=== PATIENT | male | born 1945 | race Caucasian/White ===

== ENCOUNTER → 2021-05-12 | Outpatient (CLI) | payer MEDICARE ==
--- NOTE | 2021-05-12 14:12 | KCIC ---
CT HEAD/BRAIN WO History: Reason: MENTAL STATUS CHANGE / Spl. Instructions: / History: Dizziness, unsteady gait, head ache. Comparison: None. Technique: Noncontrast CT imaging was performed of the head. Exposure: One or more of the following individualized dose reduction techniques were utilized for thi s examination: 1. Automated exposure control 2. Adjustment of the mA and/or kV according to patient size 3. Use of iterative reconstruction technique. Findings: No intracranial hemorrhage. No mass effect. Mild brain parenchymal volume loss. Moderately dilated lateral ventricles. Crowding of sulci at the s kull vertex. Mild prominence of the sylvian fissures. Mild foci of decreased attenuation within the hemispheric white matter, most often due to chronic shaheed rovascular ischemia. Imaged orbits are unremarkable. Imaged paranasal sinuses and mastoid air cells are clear. No acute ca lvarial fracture. Impression: 1. No acute intracranial abnormality. 2. Mild dilatation of the lateral ventricles, may relate to central brain parenchymal volume loss al though can be seen with normal pressure hydrocephalus in the appropriate clinical setting. Electronically signed by: Sean Potts DO (05/12/2021 2:10 PM) [facility]
== END ==
LOC: KCIC CT 13:02
PROVIDERS: ATTEND Family Medicine
DX: I67.82 Cerebral ischemia (principal); R41.82 Altered mental status, unspecified
CPT/HCPCS: 70450

== ENCOUNTER 2021-06-20 13:55 | Inpatient (IN) | payer MEDICARE ==
[~2021-06-20] VITALS: Ht 170.2 cm; Wt 80.7 kg
--- NOTE | 2021-06-20 15:35 | EKG ---
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
--- NOTE | 2021-06-20 15:41 | RAD ---
Single view of the chest. 06/20/2021 3:20 PM Indication: Reason: altered mental status / Spl. Instructions: / History: Comparison: None Findings: There is no focal consolidation. There is no pleural effusion or pneumothorax. Heart size i s normal . No acute osseous abnormalities are seen. Impression: No evidence of acute cardiopulmonary process. Electronically signed by: Efe Brown MD (06/20/2021 3:38 PM) [id number]
[2021-06-20 15:43] LABS: BASO # 0.1 x10^3/uL (0.0-0.2); BASO % 1 % (0-3); EOS # 0.1 x10^3/uL (0.0-0.7); EOS % 1 % (0-3); HEMATOCRIT 39.9 % (39.0-53.0); HEMOGLOBIN 13.6 g/dL (13.0-17.5); LYMPH # 1.7 x10^3/uL (1.0-4.8); LYMPH % 13 % (24-48); MEAN CORPUSCULAR HEMOGLOBIN 32 pg (25-35); MEAN CORPUSCULAR HGB CONC 34 g/dL (31-37); MEAN CORPUSCULAR VOLUME 94 fL (79-100); MONO # 1.4 x10^3/uL (0.0-1.1); MONO % 11 % (0-9); NEUT # 9.8 x10^3/uL (1.8-7.7); NEUT % 75 % (31-73); PLATELET COUNT 257 x10^3/uL (140-400); RED BLOOD COUNT 4.25 x10^6/uL (4.30-5.70); RED CELL DISTRIBUTION WIDTH 13.1 % (11.5-14.5); WHITE BLOOD COUNT 13.1 x10^3/uL (4.0-11.0)
--- NOTE | 2021-06-20 15:55 | RAD ---
EXAM: Head CT without contrast. HISTORY: Altered mental status. TECHNIQUE: Computed tomographic images of the head were obtained without contrast. *One or more of the following individualized dose reduction techniques were utilized for this examina tion: 1. Automated exposure control. 2. Adjustment of the mA and/or kV according to patient size. 3. Use of iterative reconstruction technique. COMPARISON: 05/12/2021. FINDINGS: There is no hemorrhage. There is no mass effect or midline shift. There is stable ventricul ar enlargement, likely due to cerebral atrophy. There is nonspecific decreased attenuation within the cerebral white matter, likely due to chronic small vessel disease. The orbits and visualized paranas al sinuses mastoid air cells are unremarkable. There is no suspicious calvarial lesion. IMPRESSION: 1. No acute intracranial finding. Note is made that MRI is more sensitive for acute infarction. 2. Bilateral cerebral white matter changes, likely due to chronic small vessel disease. 3. Stable ventricular enlargement. This appears to be appropriate for the degree of cerebral atrophy. Electronically signed by: Annie Ortega MD (06/20/2021 3:52 PM) [id number]
[2021-06-20 16:07] LABS: ALBUMIN 3.8 g/dL (3.4-5.0); CALCIUM 9.2 mg/dL (8.5-10.1); POTASSIUM 3.9 mmol/L (3.5-5.1); TOTAL BILIRUBIN 0.4 mg/dL (0.2-1.0); TOTAL PROTEIN 7.6 g/dL (6.4-8.2)
--- NOTE | 2021-06-20 16:22 | PHYS DOC ---
Past Medical History Additional Past Medical Histor: OA, HOME O2 Past Surgical History: Knee Replacement Additional Past Surgical Histo: PLATE IN HAND, HIP SX, Smoking Status: Former Smoker Alcohol Use: None General Adult EDM: Chief Complaint: MULTIPLE COMPLAINTS HPI: HPI: Patient is a 76 year old male who presents with altered mental status. Patient states that today he felt like he was having trouble finding his words and dizziness. Patient has currently been seeing his PCP, Dr. Ziegler regarding these issues. Patient states "my dizziness was a lot worse today and I could tell that I was confused". "I told my I needed to go to the emergency room". also reports patient's had multiple falls in the last month. Patient fell prior to arriving to the ER. Patient is reporting right knee pain along with left thumb pain. Patient still is full range of motion and was able to am bulate. states "he used to golf 3 times a week and was very active until a month ago". states "he will ask the same question over and over again within a 5-minute.". Patient was also seen by Dr. Hernandez on Sunday. Patient has not received results yet but due to symptoms today was sent in by his PCP . patient has a history of sarcoidosis, OA. Patient is fully vaccinated for COVID-19. Review of Systems: Review of Systems: ROS At least 10 ROS systems have been reviewed and are negative except as documented in the HPI. General: Negative except as outlined in HPI above. Skin: Negative except as outlined in HPI above. HEENT: Negative except as outlined in HPI above. Neck: Negative except as outlined in HPI above. Respiratory: Negative except as outlined in HPI above.. Cardiovascular: Negative except as outlined in HPI above. Abdomen: Negative except as outlined in HPI above. : Negative except as outlined in HPI above. Back/MSK: Negative except as outlined in HPI above. Neuro: Negative except as outlined in HPI above. Psych: Negative except as outlined in HPI above. Heart Score: C/O Chest Pain: No Risk Factors: Risk Factors: DM, Current or recent (<one month) smoker, HTN, HLP, family history of CAD, obesity. Risk Scores: Score 0 - 3: 2.5% MACE over next 6 weeks - Discharge Home Score 4 - 6: 20.3% MACE over next 6 weeks - Admit for Clinical Observation Score 7 - 10: 72.7% MACE over next 6 weeks - Early Invasive Strategies Allergies: Allergies: Allergies Coded Allergies Type Severity Reaction Last Updated Verified No Known Drug Allergies 06/20/21 No Physical Exam: PE: Constitutional: Well developed, well nourished, no acute distress, non-toxic appearance. [] HENT: Normocephalic, atraumatic, bilateral external ears normal, oropharynx moist, no oral exudates, nose normal. [] Eyes: PERRLA, EOMI, conjunctiva normal, no discharge. [] Neck: Normal range of motion, no tenderness, supple, no stridor. [] Cardiovascular:Heart rate regular rhythm, no murmur [] Lungs & Thorax: Bilateral breath sounds clear to auscultation [] Abdomen: Bowel sounds normal, soft, no tenderness, no masses, no pulsatile masses. [] Skin: Warm, dry, no erythema, no rash. [] Back: No tenderness, no CVA tenderness. [] Extremities: Left thumb tenderness, ROM intact, no edema, right knee pain, range of motion intact. [] Neurologic: Alert and oriented X 3, normal motor function, normal sensory function, unsteady on ambulation Psychologic: Affect normal, judgement abnormal, depressed mood Current Patient Data: Labs: Laboratory Tests Test 06/20/21 15:27 White Blood Count 13.1 x10^3/uL (4.0-11.0) H Red Blood Count 4.25 x10^6/uL (4.30-5.70) L Hemoglobin 13.6 g/dL (13.0-17.5) Hematocrit 39.9 % (39.0-53.0) Mean Corpuscular Volume 94 fL (79-100) Mean Corpuscular Hemoglobin 32 pg (25-35) Mean Corpuscular Hemoglobin Concent 34 g/dL (31-37) Red Cell Distribution Width 13.1 % (11.5-14.5) Platelet Count 257 x10^3/uL (140-400) Neutrophils (%) (Auto) 75 % (31-73) H Lymphocytes (%) (Auto) 13 % (24-48) L Monocytes (%) (Auto) 11 % (0-9) H Eosinophils (%) (Auto) 1 % (0-3) Basophils (%) (Auto) 1 % (0-3) Neutrophils # (Auto) 9.8 x10^3/uL (1.8-7.7) H Lymphocytes # (Auto) 1.7 x10^3/uL (1.0-4.8) Monocytes # (Auto) 1.4 x10^3/uL (0.0-1.1) H Eosinophils # (Auto) 0.1 x10^3/uL (0.0-0.7) Basophils # (Auto) 0.1 x10^3/uL (0.0-0.2) Laboratory Tests 06/20/21 15:27 Vital Signs: Vital Signs Date Time Temp Pulse Resp B/P (MAP) Pulse Ox O2 Delivery O2 Flow Rate FiO2 06/20/21 14:30 98.5 98 16 118/81 (93) 94 98.5 EKG: EKG: [] Radiology/Procedures: Radiology/Procedures: []EXAM: Head CT without contrast. HISTORY: Altered mental status. TECHNIQUE: Computed tomographic images of the head were obtained without contrast. *One or more of the following individualized dose reduction techniques were utilized for this examination: 1. Automated exposure control. 2. Adjustment of the mA and/or kV according to patient size. 3. Use of iterative reconstruction technique. COMPARISON: 05/12/2021. FINDINGS: There is no hemorrhage. There is no mass effect or midline shift. There is stable ventricular enlargement, likely due to cerebral atrophy. There is nonspecific decreased attenuation within the cerebral white matter, likely due to chronic small vessel disease. The orbits and visualized paranasal sinuses mastoid air cells are unremarkable. There is no suspicious calvarial lesion. IMPRESSION: 1. No acute intracranial finding. Note is made that MRI is more sensitive for acute infarction. 2. Bilateral cerebral white matter changes, likely due to chronic small vessel disease. 3. Stable ventricular enlargement. This appears to be appropriate for the degree of cerebral atrophy. Electronically signed by: Annie Ortega MD (06/20/2021 3:52 PM) [id number] Single view of the chest. 06/20/2021 3:20 PM Indication: Reason: altered mental status / Spl. Instructions: / History: Comparison: None Findings: There is no focal consolidation. There is no pleural effusion or pneumothorax. Heart size is normal . No acute osseous abnormalities are seen. Impression: No evidence of acute cardiopulmonary process. Electronically signed by: Efe Brown MD (06/20/2021 3:38 PM) [id number] EXAMINATION: Right knee radiograph. VIEWS: 3 views of the right knee COMPARISON: None INDICATION:76 years, Male, fall. FINDINGS: No acute fracture, dislocation or subluxation. Right total knee arthroplasty appears well seated without evidence of acute complication. No joint effusion. S oft tissues are grossly unremarkable. Vascular calcifications are noted. IMPRESSION: No acute osseous process. Electronically signed by: Sammy Santana DO (06/20/2021 6:21 PM) [id number] EXAMINATION: Left hand radiograph. VIEWS: 3 views of the left hand COMPARISON: None INDICATION:76 years, Male, fall. FINDINGS: Orthopedic plate and screw construct spanning the wrist without evidence of malalignment or fracture. No acute fracture, dislocation or subluxation. Severe degenerative changes throughout the wrist. Cortical irregularity of the distal ulna and radius suggestive of sequela of remote osseous injury. Scattered dege nerative changes of the proximal and distal interphalangeal joints. Soft tissues are unremarkable. IMPRESSION: No acute osseous process. Electronically signed by: Sammy Santana DO (06/20/2021 6:18 PM) [facility] Course & Med Decision Making: Course & Med Decision Making Pertinent Labs and Imaging studies reviewed. (See chart for details) [] 76-year-old male presents with altered mental status, dizziness for the last month. states that patient was seen by Dr. Hernandez on Sunday for similar symptoms but today when patient felt like he was unable to find his words, his PCP Dr. Lopez suggested he come in for repeat CT. CT was negative for acute abnormality. reports patient has recently been very unsteady on his feet and had multiple falls. states that all symptoms have started in the last 4 weeks. Patient tripped and fell and has pain to his right knee and left thumb. X-rays ordered of right knee and left thumb to rule out fracture. Knee and hand x-rays are negative for fracture. Discussed all results with patient. Advised patient he would need to be admitted for further evaluation. and patient both agreed to admission plan and were appreciative. Discussed patient case with Dr. Ziegler. Patient will be admitted to the hospital for altered mental status, dizziness. Juany Disclaimer: Juany Disclaimer: This electronic medical record was generated, in whole or in part, using a voice recognition dictation system. Departure Departure Impression: Primary Impression: AMS (altered mental status) Qualified Codes: R41.82 - Altered mental status, unspecified Additional Impression: Dizziness Disposition: ADMITTED INPATIENT Admitting Physician: Sergio Ziegler Condition: STABLE Referrals: SERGIO ZIEGLER MD (PCP) NATO WHITE APRN Jun 20, 2021 16:22
--- NOTE | 2021-06-20 18:21 | RAD ---
EXAMINATION: Left hand radiograph. VIEWS: 3 views of the left hand COMPARISON: None INDICATION:76 years, Male, fall. FINDINGS: Orthopedic plate and screw construct spanning the wrist without evidence of malalignment or fracture. No acute fracture, dislocation or subluxation. Severe degenerative changes throughout the wrist. Cor tical irregularity of the distal ulna and radius suggestive of sequela of remote osseous injury. Scat tered degenerative changes of the proximal and distal interphalangeal joints. Soft tissues are unrema rkable. IMPRESSION: No acute osseous process. Electronically signed by: Sammy Santana DO (06/20/2021 6:18 PM) [facility]
--- NOTE | 2021-06-20 18:23 | RAD ---
EXAMINATION: Right knee radiograph. VIEWS: 3 views of the right knee COMPARISON: None INDICATION:76 years, Male, fall. FINDINGS: No acute fracture, dislocation or subluxation. Right total knee arthroplasty appears well seated with out evidence of acute complication. No joint effusion. Soft tissues are grossly unremarkable. Vascula r calcifications are noted. IMPRESSION: No acute osseous process. Electronically signed by: Sammy Santana DO (06/20/2021 6:21 PM) [facility]
[2021-06-20] MEDS ORDERED: diazePAM 5 MG TABLET PO ONE (19:00)
[2021-06-20 20:20] VITALS: BP 126/68
[2021-06-20] MEDS ORDERED: DIAZ5TAB PO (20:49)
[2021-06-20] MEDS ORDERED: ZOLP5TAB PO (20:49)
[2021-06-20] MEDS: CALCIUM CARBONATE 500 MG TAB.CHEW PO PRN (21:09)
[2021-06-20 23:00] VITALS: BP 119/68
[2021-06-21 03:00] VITALS: BP 125/77
[2021-06-21] MEDS: ACETAMINOPHEN 325 MG TABLET. PO PRN ×2 (04:13→20:42)
--- NOTE | 2021-06-21 09:13 | HP ---
DATE OF SERVICE: 06/21/2021 ADMIT DATE: 06/20/2021 ADMISSION HISTORY AND PHYSICAL CHIEF COMPLAINT AND HISTORY OF PRESENT ILLNESS: This 76-year-old male presented to the Emergency Room with worsening mental status. He was having trouble finding his words, more confused. We have been working this up as an outpatient with only findings today beyond that of possible normal pressure hydrocephalus. It was so much worse that his brought him to the Emergency Room. 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 PAST MEDICAL HISTORY: Remarkable for sarcoidosis. Has a history of chronic pain and is on medicines for the same. Has a history of peripheral neuropathy, osteoarthritis. Is on home O2 at 2-3 liters. MEDICATIONS: Inaccurate listed on the computer and will be gleaned from the office record once I am able to get there. ALLERGIES: He has no known drug allergies. SOCIAL HISTORY: He is a former smoker, social drinker in the past, none currently. FAMILY HISTORY: Noncontributory. REVIEW OF SYSTEMS: Unobtainable as the patient is definitely confused this morning and I do not believe he even recognized me. OBJECTIVE: GENERAL: He is a well-developed, well-nourished white male in no acute distress, but confused. VITAL SIGNS: Stable. He is afebrile. HEAD, EYES, EARS, NOSE AND THROAT: Unremarkable. NECK: Supple without adenopathy or thyromegaly. CHEST: Reveals decreased breath sounds bilaterally. HEART: Regular rate and rhythm without S3, S4 or murmur. ABDOMEN: Soft, nontender, without hepatosplenomegaly or mass. EXTREMITIES: Without cyanosis, clubbing, or edema. NEUROLOGIC: He is intact. LABORATORY DATA: White blood count is elevated at 13,000 with a left shift. CO2 level is elevated at 34 on admission. ASSESSMENT: 1. Acute confusional state with encephalopathy. His baseline of a month or more of ill-defined change in mental status. 2. Other problems listed above. PLAN: Neurological consultation with plans to follow. KYLE DR: Sandeep TID: [id number]
[2021-06-21] MEDS ORDERED: SUBOXONE PO SCH (10:00)
[2021-06-21] MEDS: DULoxetine HCL 30 MG CAPSULE.DR PO SCH ×3 (10:00→20:51)
[2021-06-21] MEDS: predniSONE 5 MG TABLET PO SCH (10:00)
[2021-06-21] MEDS: ISOSORBIDE MONONITRATE ER 30 MG TAB.ER.24H PO SCH (10:01)
[2021-06-21] MEDS: diazePAM 5 MG TABLET PO SCH ×3 (10:02→20:43)
--- NOTE | 2021-06-21 10:42 | NUR ---
SW following. Discussed with RN, pt from home with , 2L. ST ordered. RN ordering PT/OT. Neuro following. SW will continue to follow.
[2021-06-21 11:00] VITALS: BP 95/71
--- NOTE | 2021-06-21 14:33 | PDOC2 ---
NEUROLOGY CONSULT Date of Service DOS: DATE: 06/21/21 TIME: 14:13 Reason for Consult Reason for Consult: Altered mental status Referring Physician Referring Physician: Dr. Ziegler Source Source: Chart review, Patient History of Present Illness History of Present Illness The patient is a 76-year-old right-handed male whom I just saw a week ago with SANTIAGO Frazier in my office for possible normal pressure hydrocephalus. 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 On 06/10 his witnessed some convulsive activity without altered consciousness, patient was standing up, started shaking, his made him sit down, but there was no tongue biting or incontinence. He has trouble concentrating. There is been no incontinence. He has difficulty walking, feeling off balance but has had no falls. He also has a history of idiopathic neuropathy. I reviewed images from CT study of 05/12/2021, I felt there was ex vacuo ventricular dilatation without hydrocephalus. He also had a CT of the head from [facility] on 05/25/2021, report detailing similar findings. Mini- Mental status exam score was 30/30, clock-drawing task was 4/4. We ordered laboratory studies, negative as reviewed below; and carotid Doppler studies, MRI of the brain, and electroencephalogram, which have not been done yet. Patient's brought him into the emergency department yesterday because he was more lethargic and confused and having trouble walking. There is no history of stroke. 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, no alcohol or tobacco (last cigarette more than 10 years ago) Current Medications Current Medications Current Medications Diazepam (Valium) 5 mg 1X ONCE PO Last administered on 06/20/21at 19:13; Start 06/20/21 at 19:00; Stop 06/20/21 at 19:01; Status DC Calcium Carbonate/ Glycine (Tums) 500 mg PRN AFTMEALHC PRN PO INDIGESTION Last administered on 06/20/21at 21:09; Start 06/20/21 at 21:00 Acetaminophen (Tylenol) 650 mg PRN Q6HRS PRN PO MILD PAIN / TEMP > 100.3'F Last administered on 06/21/21at 04:13; Start 06/21/21 at 04:15 Zolpidem Tartrate (Ambien) 10 mg QHS PRN PO insomnia; Start 06/21/21 at 21:00 Diazepam (Valium) 5 mg TID PO Last administered on 06/21/21at 10:02; Start 06/21/21 at 09:30 Metoclopramide HCl (Reglan) 10 mg QHS PO ; Start 06/21/21 at 21:00 Trazodone HCl (Desyrel) 150 mg QHS PO ; Start 06/21/21 at 21:00 Prednisone (Prednisone) 5 mg DAILY PO Last administered on 06/21/21at 10:00; Start 06/21/21 at 10:00 Levothyroxine Sodium (Synthroid) 75 mcg DAILY06 PO ; Start 06/22/21 at 06:00 Isosorbide Mononitrate (Imdur) 60 mg DAILY PO Last administered on 06/21/21at 10:01; Start 06/21/21 at 10:00 Pantoprazole Sodium (Protonix) 40 mg DAILYAC PO ; Start 06/22/21 at 07:30 Non-Formulary Medication (suboxone) 8.2 mg DAILY PO ; Start 06/21/21 at 10:00; Status UNV Duloxetine HCl (Cymbalta) 30 mg BID PO Last administered on 06/21/21at 10:00; Start 06/21/21 at 10:00 Non-Formulary Medication (NON FORMULARY ITEM (Buprenorphine/ Naloxone 8mg/2mg)) 1 ea TID SL ; Start 06/21/21 at 14:00 Active Scripts Active Reported Ambien (Zolpidem Tartrate) 5 Mg Tablet 5 Mg PO PRN QHS PRN Valium (Diazepam) 5 Mg Tablet 5 Mg PO TID Allergies Allergies: Coded Allergies: No Known Drug Allergies (Unverified , 06/20/21) ROS Review of System Negative for fever, chills, weight loss, shortness of breath, chest pain, mechelle gestion, hematochezia, melena, and dysuria. Full 14-point review of systems is negative. Physical Exam Physical Examination General: Well-developed, well-nourished, white male, in no acute distress HEENT: Normocephalic andatraumatic. Tympanic membranes clear.Temporal arteriespulsatile and nontender.Fundoscopic exam unremarkable Neck: Supple without bruit, no meningismus Musculoskeletal: Stability:see neurologic. Gait exam:see neurologic. Tone:see neurologic.Strength:see neurologic. Neurological: Mental Status:orientation, memory, attention span/concentration, language, fund of knowledge: Poor attention, drifts off to sleep, knows location but is 3 days off on the date. Cranial Nerves:Pupils equal and reactive to light, extraocular movements areintact, visual kraft are full to confrontation. Facial sensation is normal. There is no facial asymmetry. Vestibulo-ocular reflex is intact. Palate elevates and tongue protrudes in midline. All other cranial related probl ems are negative except as mentioned before.Reflexes:2+ and symmetric with flexor plantar responses. Motor:5/5 strength with normal tone and bulk. Coordination:Finger-nose finger and [id number] testing are normal. Rapid alternating movements and fine finger movements are intact. Gait:Not tested. Sensory:Stocking glove loss. Vitals VITALS Vital Signs Date Time Temp Pulse Resp B/P (MAP) Pulse Ox O2 Delivery O2 Flow Rate FiO2 06/21/21 11:00 97.3 99 19 95/71 (79) 90 Nasal Cannula 2.0 97.3 Labs Labs Outpatient labs from 06/20: Normal antinuclear antibody, sedimentation rate, TSH, C-reactive protein, CBC (hemoglobin 12.9), B12 (559), folate, protein electrophoresis. Vitamin D was 25 on 05/18/2021 Laboratory Tests Test 06/20/21 15:27 White Blood Count 13.1 x10^3/uL (4.0-11.0) Red Blood Count 4.25 x10^6/uL (4.30-5.70) Hemoglobin 13.6 g/dL (13.0-17.5) Hematocrit 39.9 % (39.0-53.0) Mean Corpuscular Volume 94 fL (79-100) Mean Corpuscular Hemoglobin 32 pg (25-35) Mean Corpuscular Hemoglobin Concent 34 g/dL (31-37) Red Cell Distribution Width 13.1 % (11.5-14.5) Platelet Count 257 x10^3/uL (140-400) Neutrophils (%) (Auto) 75 % (31-73) Lymphocytes (%) (Auto) 13 % (24-48) Monocytes (%) (Auto) 11 % (0-9) Eosinophils (%) (Auto) 1 % (0-3) Basophils (%) (Auto) 1 % (0-3) Neutrophils # (Auto) 9.8 x10^3/uL (1.8-7.7) Lymphocytes # (Auto) 1.7 x10^3/uL (1.0-4.8) Monocytes # (Auto) 1.4 x10^3/uL (0.0-1.1) Eosinophils # (Auto) 0.1 x10^3/uL (0.0-0.7) Basophils # (Auto) 0.1 x10^3/uL (0.0-0.2) Sodium Level 137 mmol/L (136-145) Potassium Level 3.9 mmol/L (3.5-5.1) Chloride Level 100 mmol/L (98-107) Carbon Dioxide Level 34 mmol/L (21-32) Anion Gap 3 (6-14) Blood Urea Nitrogen 12 mg/dL (8-26) Creatinine 1.0 mg/dL (0.7-1.3) Estimated GFR (Cockcroft-Gault) 73.0 BUN/Creatinine Ratio 12 (6-20) Glucose Level 97 mg/dL (70-99) Lactic Acid Level 0.7 mmol/L (0.4-2.0) Calcium Level 9.2 mg/dL (8.5-10.1) Magnesium Level 2.0 mg/dL (1.8-2.4) Total Bilirubin 0.4 mg/dL (0.2-1.0) Aspartate Amino Transf (AST/SGOT) 25 U/L (15-37) Alanine Aminotransferase (ALT/SGPT) 43 U/L (16-63) Alkaline Phosphatase 59 U/L (46-116) Creatine Kinase 167 U/L (39-308) XA-Wvs-F-Type Natriuretic Peptide 179 pg/mL (0-124) Total Protein 7.6 g/dL (6.4-8.2) Albumin 3.8 g/dL (3.4-5.0) Albumin/Globulin Ratio 1.0 (1.0-1.7) Laboratory Tests Test 06/20/21 15:27 White Blood Count 13.1 x10^3/uL (4.0-11.0) Red Blood Count 4.25 x10^6/uL (4.30-5.70) Hemoglobin 13.6 g/dL (13.0-17.5) Hematocrit 39.9 % (39.0-53.0) Mean Corpuscular Volume 94 fL (79-100) Mean Corpuscular Hemoglobin 32 pg (25-35) Mean Corpuscular Hemoglobin Concent 34 g/dL (31-37) Red Cell Distribution Width 13.1 % (11.5-14.5) Platelet Count 257 x10^3/uL (140-400) Neutrophils (%) (Auto) 75 % (31-73) Lymphocytes (%) (Auto) 13 % (24-48) Monocytes (%) (Auto) 11 % (0-9) Eosinophils (%) (Auto) 1 % (0-3) Basophils (%) (Auto) 1 % (0-3) Neutrophils # (Auto) 9.8 x10^3/uL (1.8-7.7) Lymphocytes # (Auto) 1.7 x10^3/uL (1.0-4.8) Monocytes # (Auto) 1.4 x10^3/uL (0.0-1.1) Eosinophils # (Auto) 0.1 x10^3/uL (0.0-0.7) Basophils # (Auto) 0.1 x10^3/uL (0.0-0.2) Sodium Level 137 mmol/L (136-145) Potassium Level 3.9 mmol/L (3.5-5.1) Chloride Level 100 mmol/L (98-107) Carbon Dioxide Level 34 mmol/L (21-32) Anion Gap 3 (6-14) Blood Urea Nitrogen 12 mg/dL (8-26) Creatinine 1.0 mg/dL (0.7-1.3) Estimated GFR (Cockcroft-Gault) 73.0 BUN/Creatinine Ratio 12 (6-20) Glucose Level 97 mg/dL (70-99) Lactic Acid Level 0.7 mmol/L (0.4-2.0) Calcium Level 9.2 mg/dL (8.5-10.1) Magnesium Level 2.0 mg/dL (1.8-2.4) Total Bilirubin 0.4 mg/dL (0.2-1.0) Aspartate Amino Transf (AST/SGOT) 25 U/L (15-37) Alanine Aminotransferase (ALT/SGPT) 43 U/L (16-63) Alkaline Phosphatase 59 U/L (46-116) Creatine Kinase 167 U/L (39-308) LM-Ear-K-Type Natriuretic Peptide 179 pg/mL (0-124) Total Protein 7.6 g/dL (6.4-8.2) Albumin 3.8 g/dL (3.4-5.0) Albumin/Globulin Ratio 1.0 (1.0-1.7) Images Images Head CT without contrast. HISTORY: Altered mental status. TECHNIQUE: Computed tomographic images of the head were obtained without contrast. *One or more of the following individualized dose reduction techniques were utilized for this examination: 1. Automated exposure control. 2. Adjustment of the mA and/or kV according to patient size. 3. Use of iterative reconstruction technique. COMPARISON: 05/12/2021. FINDINGS: There is no hemorrhage. There is no mass effect or midline shift. There is stable ventricular enlargement, likely due to cerebral atrophy. There is nonspecific decreased attenuation within the cerebral white matter, likely due to chronic small vessel disease. The orbits and visualized paranasal sinuses mastoid air cells are unremarkable. There is no suspicious calvarial lesion. IMPRESSION: 1. No acute intracranial finding. Note is made that MRI is more sensitive for acute infarction. 2. Bilateral cerebral white matter changes, likely due to chronic small vessel disease. 3. Stable ventricular enlargement. This appears to be appropriate for the degree of cerebral atrophy. Assessment/Plan Assessment/Plan Impression: Certainly worse mental status than when we saw him a week ago in the office. I still do not feel he has normal pressure hydrocephalus, CT appearance is consi stent with ex vacuo hydrocephalus. We need to rule out seizure activity, other metabolic issues such as hypoxia from his lung disease, and various dementias that can cause fluctuations such as Lewy body disease. Against this is the lack of parkinsonian signs, but even Alzheimer's disease can rarely present in this fashion. Paraneoplastic syndrome is possible. Intoxication is possible even though the patient denies alcohol or drug use. Outpatient laboratory studies are all negative for reversible causes of dementia and neuropathy. Idiopathic peripheral neuropathy. Sarcoidosis can sometimes cause this, though Note leukocytosis Recommendations: Electroencephalogram MRI of the brain Carotid Doppler or CTA angiogram depending on results Pulse oximetry Urine drug screen, UA/C&S I will consider lumbar puncture including testing for autoimmune encephalitis Normal pressure hydrocephalus evaluation would consist of placing a lumbar or ventricular drain and assessing for change in his mental status or gait. However, he has spontaneous fluctuations of these, so assessment of results would be very problematic. Again, myself, and several radiologists agree that this is ex vacuo hydrocephalus that can be seen in normal age-related atrophy. Thank you for letting me help with the patient's care. ANTONIO HERR MD Jun 21, 2021 14:33
[2021-06-21 15:00] VITALS: BP 111/72
--- NOTE | 2021-06-21 15:13 | NUR ---
Pt noted with bandaid hanging from ear posteriorly, area assessed and noted a large open area draining serosanguineous color fluid. 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 also verified information. Wound care and nutrition have been consulted.
--- NOTE | 2021-06-21 15:18 | RAD ---
EXAM: Brain MRI without contrast. HISTORY: Altered mental status. Normal pressure hydrocephalus. TECHNIQUE: Multiplanar, multisequence magnetic resonance imaging of the brain was performed without c ontrast. COMPARISON: CT dated 06/20/2021. FINDINGS: There is no restricted diffusion to suggest acute or subacute infarction. There is no susce ptibility artifact to suggest hemorrhage. There is no mass effect or midline shift. There is cerebral atrophy with compensatory enlargement of the ventricles. The ventricular size does not appear to be greater than expected for cerebral volume and there is no evidence of transependymal flow of CSF to s uggest normal pressure hydrocephalus. There is asymmetric increased extra-axial space along the left parietal lobe near the vertex due to volume loss or an arachnoid cyst. There are scattered foci of si gnal change within the cerebral white matter, likely due to chronic small vessel disease. The orbits, paranasal sinuses mastoid air cells are unremarkable. There are normal flow voids within the cerebra l vessels. No calvarial lesion is seen. IMPRESSION: 1. No acute intracranial finding. 2. Scattered foci of signal change within the cerebral white matter, likely due to chronic small vess el disease in a patient of this age. 3. Cerebral volume loss with compensatory enlargement of the ventricles. There are no secondary imagi ng findings to suggest normal pressure hydrocephalus. However, this cannot be excluded in the appropr iate clinical setting. Electronically signed by: Annie Ortega MD (06/21/2021 3:15 PM) [id number]
[2021-06-21] MEDS: CALCIUM CARBONATE 500 MG TAB.CHEW PO PRN ×2 (15:43→23:04)
[2021-06-21] MEDS: NALOXONE SL SCH ×2 (15:44→20:43)
[2021-06-21] MEDS: BUPRENORPHINE SL SCH ×2 (15:44→20:43)
[2021-06-21 19:57] VITALS: BP 108/63
[2021-06-21] MEDS: traZODone 100 MG TABLET. PO SCH (20:42)
[2021-06-21] MEDS: ZOLPIDEM 5 MG TABLET. PO PRN (20:42)
[2021-06-21] MEDS: METOCLOPRAMIDE 10 MG TABLET. PO SCH (20:42)
[2021-06-21] MEDS: IPRATRPIUM/ALBUTEROL 0.5/2.5MG 3 ML NEBU. NEB SCH (21:29)
[2021-06-22] MEDS: PANTOPRAZOLE 40 MG TABLET.DR. PO SCH (06:10)
[2021-06-22] MEDS: LEVOTHYROXINE 75 MCG TABLET PO SCH (06:10)
[2021-06-22 07:00] VITALS: BP 158/74
[2021-06-22] MEDS: IPRATRPIUM/ALBUTEROL 0.5/2.5MG 3 ML NEBU. NEB SCH ×4 (07:25→20:00)
--- NOTE | 2021-06-22 09:40 | PDOC ---
PROGRESS NOTES Date of Service DATE: 06/22/21 TIME: 09:37 Assessment Problems Medical Problems: (1) AMS (altered mental status) Status: Acute (2) Dizziness Status: Acute Now his mental status is back to normal, patient and wonder if duloxetine is at fault. Note that he is on Suboxone for chronic pain that would cause fluctuations in mental status. Electroencephalogram shows mild slowing of background consistent with a drug effect MRI confirms that there is no normal pressure hydrocephalus Idiopathic peripheral neuropathy. Sarcoidosis can sometimes cause this, though Note leukocytosis Plan Discontinue duloxetine No need for carotid Doppler or CTA angiogram depending on results Pulse oximetry, Urine drug screen, UA/C&S all pending Hold on lumbar puncture Follow-up as scheduled with SANTIAGO Frazier Discussed with Dr. Ziegler Left message with patient's Subjective Feels much better Objective Vital Signs Date Time Temp Pulse Resp B/P (MAP) Pulse Ox O2 Delivery O2 Flow Rate FiO2 06/22/21 07:26 92 Nasal Cannula 2.0 06/22/21 07:00 98.2 88 16 158/74 (102) 98.2 Intake and Output 06/22/21 07:00 Intake Total 1020 ml Balance 1020 ml Intake Oral 1020 ml PHYSICAL EXAM Alert. Oriented to time, place and person. PERRL. EOMI. CN: no focal findings. Muscle tone: normal. Muscle strength: 5/5 DTR: 2+ Plantar reflex: Flexor Gait: not examined in bed. Sensory exam: Stocking-glove loss. No cerebellar signs elicited. Review of Relevant I have reviewed the following items whitney (where applicable) has been applied. Labs Laboratory Tests Test 06/20/21 15:27 White Blood Count 13.1 x10^3/uL (4.0-11.0) Red Blood Count 4.25 x10^6/uL (4.30-5.70) Hemoglobin 13.6 g/dL (13.0-17.5) Hematocrit 39.9 % (39.0-53.0) Mean Corpuscular Volume 94 fL (79-100) Mean Corpuscular Hemoglobin 32 pg (25-35) Mean Corpuscular Hemoglobin Concent 34 g/dL (31-37) Red Cell Distribution Width 13.1 % (11.5-14.5) Platelet Count 257 x10^3/uL (140-400) Neutrophils (%) (Auto) 75 % (31-73) Lymphocytes (%) (Auto) 13 % (24-48) Monocytes (%) (Auto) 11 % (0-9) Eosinophils (%) (Auto) 1 % (0-3) Basophils (%) (Auto) 1 % (0-3) Neutrophils # (Auto) 9.8 x10^3/uL (1.8-7.7) Lymphocytes # (Auto) 1.7 x10^3/uL (1.0-4.8) Monocytes # (Auto) 1.4 x10^3/uL (0.0-1.1) Eosinophils # (Auto) 0.1 x10^3/uL (0.0-0.7) Basophils # (Auto) 0.1 x10^3/uL (0.0-0.2) Sodium Level 137 mmol/L (136-145) Potassium Level 3.9 mmol/L (3.5-5.1) Chloride Level 100 mmol/L (98-107) Carbon Dioxide Level 34 mmol/L (21-32) Anion Gap 3 (6-14) Blood Urea Nitrogen 12 mg/dL (8-26) Creatinine 1.0 mg/dL (0.7-1.3) Estimated GFR (Cockcroft-Gault) 73.0 BUN/Creatinine Ratio 12 (6-20) Glucose Level 97 mg/dL (70-99) Lactic Acid Level 0.7 mmol/L (0.4-2.0) Calcium Level 9.2 mg/dL (8.5-10.1) Magnesium Level 2.0 mg/dL (1.8-2.4) Total Bilirubin 0.4 mg/dL (0.2-1.0) Aspartate Amino Transf (AST/SGOT) 25 U/L (15-37) Alanine Aminotransferase (ALT/SGPT) 43 U/L (16-63) Alkaline Phosphatase 59 U/L (46-116) Creatine Kinase 167 U/L (39-308) PY-Upo-E-Type Natriuretic Peptide 179 pg/mL (0-124) Total Protein 7.6 g/dL (6.4-8.2) Albumin 3.8 g/dL (3.4-5.0) Albumin/Globulin Ratio 1.0 (1.0-1.7) Medications Current Medications Diazepam (Valium) 5 mg 1X ONCE PO Last administered on 06/20/21 19:13; Start 06/20/21 at 19:00; Stop 06/20/21 at 19:01; Status DC Calcium Carbonate/ Glycine (Tums) 500 mg PRN AFTMEALHC PRN PO INDIGESTION Last administered on 06/21/21at 23:04; Start 06/20/21 at 21:00 Acetaminophen (Tylenol) 650 mg PRN Q6HRS PRN PO MILD PAIN / TEMP > 100.3'F Last administered on 06/21/21 20:42; Start 06/21/21 at 04:15 Zolpidem Tartrate (Ambien) 5 mg QHS PRN PO INSOMNIA, MAY REPEAT X1 Last administered on 06/21/21 20:42; Start 06/21/21 at 21:00 Diazepam (Valium) 5 mg TID PO Last administered on 06/21/21 20:43; Start 06/21/21 at 09:30 Metoclopramide HCl (Reglan) 10 mg QHS PO Last administered on 06/21/21at 20:42; Start 06/21/21 at 21:00 Trazodone HCl (Desyrel) 150 mg QHS PO Last administered on 06/21/21 20:42; Start 06/21/21 at 21:00 Prednisone (Prednisone) 5 mg DAILY PO Last administered on 06/21/21at 10:00; Start 06/21/21 at 10:00 Levothyroxine Sodium (Synthroid) 75 mcg DAILY06 PO Last administered on 06/22/21at 06:10; Start 06/22/21 at 06:00 Isosorbide Mononitrate (Imdur) 60 mg DAILY PO Last administered on 06/21/21at 10:01; Start 06/21/21 at 10:00 Pantoprazole Sodium (Protonix) 40 mg DAILYAC PO Last administered on 06/22/21at 06:10; Start 06/22/21 at 07:30 Non-Formulary Medication (suboxone) 8.2 mg DAILY PO ; Start 06/21/21 at 10:00; Status UNV Duloxetine HCl (Cymbalta) 30 mg BID PO Last administered on 06/21/21at 10:00; Start 06/21/21 at 10:00; Stop 06/22/21 at 08:31; Status DC Non-Formulary Medication (NON FORMULARY ITEM (Buprenorphine/ Naloxone 8mg/2mg)) 1 ea TID SL Last administered on 06/21/21at 20:43; Start 06/21/21 at 14:00 Albuterol/ Ipratropium (Duoneb) 3 ml RTQID NEB Last administered on 06/22/21at 07:25; Start 06/21/21 at 20:00 Active Scripts Active Reported Ambien (Zolpidem Tartrate) 5 Mg Tablet 5 Mg PO PRN QHS PRN Valium (Diazepam) 5 Mg Tablet 5 Mg PO TID Vitals/I & O Vital Sign - Last 24 Hours 06/21/21 06/21/21 06/21/21 06/21/21 10:01 11:00 15:00 19:57 Temp 97.3 97.6 98.4 97.3 97.6 98.4 Pulse 90 99 93 103 Resp 19 18 16 B/P (MAP) 125/77 95/71 (79) 111/72 (85) 108/63 (78) Pulse Ox 90 93 95 O2 Delivery Nasal Cannula Room Air Nasal Cannula O2 Flow Rate 2.0 2.0 06/21/21 06/21/21 06/21/21 06/22/21 20:05 21:31 23:34 03:27 Pulse Ox 88 O2 Delivery Room Air Nasal Cannula Room Air Nasal Cannula O2 Flow Rate 1.0 2.0 06/22/21 06/22/21 07:00 07:26 Temp 98.2 98.2 Pulse 88 Resp 16 B/P (MAP) 158/74 (102) Pulse Ox 96 92 O2 Delivery Nasal Cannula Nasal Cannula O2 Flow Rate 2.0 2.0 Intake and Output 06/21/21 06/21/21 06/22/21 15:00 23:00 07:00 Intake Total 300 ml 240 ml 480 ml Balance 300 ml 240 ml 480 ml Justicifation of Admission Dx: Justifications for Admission: Justification of Admission Dx: N/A ANTONIO HERR MD Jun 22, 2021 09:40
[2021-06-22] MEDS: predniSONE 5 MG TABLET PO SCH (10:09)
[2021-06-22] MEDS: BUPRENORPHINE SL SCH ×3 (10:09→21:14)
[2021-06-22] MEDS: NALOXONE SL SCH ×3 (10:09→21:14)
[2021-06-22] MEDS: diazePAM 5 MG TABLET PO SCH ×3 (10:10→21:10)
[2021-06-22] MEDS: ISOSORBIDE MONONITRATE ER 30 MG TAB.ER.24H PO SCH (10:10)
[2021-06-22 11:00] VITALS: BP 149/96
--- NOTE | 2021-06-22 12:58 | EEG ---
DATE OF SERVICE: 06/21/2021 ELECTROENCEPHALOGRAM REPORT EEG NUMBER: [id number] OBJECTIVE: The patient is a 76-year-old male with altered mental status and a possible seizure. DESCRIPTION: This is a digital study. Electrodes are placed according to the International 10-20 system. Bipolar and referential montages are available. Activation procedures typically include hyperventilation and intermittent photic stimulation. INTERPRETATION: The waking background consists of 7-8 Hz, 50-100 microvolt activity, symmetrically distributed over parietooccipital regions and reactive to eye opening. Stage 1 sleep is achieved with normal electroencephalogram patterns. Hyperventilation and intermittent photic stimulation are noncontributory. IMPRESSION: This electroencephalogram with the patient awake and asleep is abnormal because of a mild, diffuse disturbance of cerebral activity consistent with any of a variety of toxic or metabolic encephalopathies. There is no focal, paroxysmal, or epileptiform activity. Thank you for letting us help with the patient's care. SADIE/MARCEL DR: Omid TID: [id number]
[2021-06-22 13:24] LABS: BILIRUBIN,URINE NEGATIVE (NEG); CLARITY,URINE CLEAR; COLOR,URINE YELLOW; NITRITE,URINE NEGATIVE (NEG); PROTEIN,URINE NEGATIVE (NEG-TRACE)
[2021-06-22 13:32] LABS: BARBITURATES NEG (NEG); BENZODIAZEPINES POS (NEG); CANNABINOIDS NEG (NEG); COCAINE NEG (NEG); METHADONE NEG (NEG); OPIATES NEG (NEG); PHENCYCLIDINE NEG (NEG)
[2021-06-22 13:33] LABS: AMPHETAMINE/METHAMPHETAMINE NEG (NEG)
[2021-06-22 13:36] LABS: BACTERIA,URINE 0 /HPF (0-FEW); RBC,URINE 0 /HPF (0-2); WBC,URINE 0 /HPF (0-4)
[2021-06-22 15:00] VITALS: BP 118/78
--- NOTE | 2021-06-22 19:46 | PN ---
DATE: 06/22/2021 DAILY PROGRESS NOTE LOCATION: He is in room 538. SUBJECTIVE: This 76-year-old male admitted with altered mental status. He is much better this morning as I am seeing him and does have a recall of yesterday when I saw him and he felt like he was in the middle of a dream. Him and his have talked and feel like the mental status changes leading up to, thus started with Cymbalta through the pain clinic. They wonder about stopping it and I told him my feeling that it is a probably a good place for starters. Neurology is still working him up and we have EEG, etc. pending. OBJECTIVE: VITAL SIGNS: Stable. He is afebrile. GENERAL: He is awake and alert today. CHEST: Clear. HEART: Regular. ABDOMEN: Benign. ASSESSMENT: Altered mental status, of uncertain etiology at this point with workup ongoing. PLAN: Continue present workup. Discontinue Cymbalta. RAHEEM DR: Sandeep TID: [id number]
[2021-06-22 19:57] VITALS: BP 149/75
[2021-06-22] MEDS: CALCIUM CARBONATE 500 MG TAB.CHEW PO PRN (21:10)
[2021-06-22] MEDS: traZODone 100 MG TABLET. PO SCH (21:10)
[2021-06-22] MEDS: METOCLOPRAMIDE 10 MG TABLET. PO SCH (21:10)
[2021-06-22] MEDS: ZOLPIDEM 5 MG TABLET. PO PRN (21:10)
[2021-06-22 23:19] VITALS: BP 121/72
[2021-06-23] MEDS: PANTOPRAZOLE 40 MG TABLET.DR. PO SCH (05:57)
[2021-06-23] MEDS: LEVOTHYROXINE 75 MCG TABLET PO SCH (05:57)
[2021-06-23 07:00] VITALS: BP 122/84
--- NOTE | 2021-06-23 08:23 | NUR ---
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 Patient has been seen and getting treatment for this tumor and there is no need for wound care or dressing at this time. Wound care will sign off at this time.
[2021-06-23] MEDS: ISOSORBIDE MONONITRATE ER 30 MG TAB.ER.24H PO SCH (10:03)
[2021-06-23] MEDS: IPRATROPIUM/ALBUTEROL 20/100mcg/INH INHALER. INH SCH ×2 (10:03→12:00)
[2021-06-23] MEDS: predniSONE 5 MG TABLET PO SCH (10:04)
[2021-06-23] MEDS: diazePAM 5 MG TABLET PO SCH (10:04)
[2021-06-23] MEDS: BUPRENORPHINE SL SCH (10:33)
[2021-06-23] MEDS: NALOXONE SL SCH (10:33)
--- NOTE | 2021-06-23 10:55 | NUR ---
SW following. Discussed with RN, pt from home with , has oxygen at home. COVID-[address] Ziegler, pt's will take pt home to isolate today. No discharge order as of yet. SW will continue to follow.
[2021-06-23 11:00] VITALS: BP 143/86
--- NOTE | 2021-06-23 12:42 | PDOC ---
PROGRESS NOTES Date of Service DATE: 06/23/21 TIME: 12:39 Assessment Problems Medical Problems: (1) AMS (altered mental status) Status: Acute (2) Dizziness Status: Acute Encephalopathy, possibly duloxetine is at fault. Note that he is on Suboxone for chronic pain and diazepam for anxiety, that would cause fluctuations in mental status. Electroencephalogram shows mild slowing of background consistent with a drug effect MRI confirms that there is no normal pressure hydrocephalus Idiopathic peripheral neuropathy. Sarcoidosis can sometimes cause this, though Note leukocytosis. UA negative, SARS + Urine drug screen positive for benzodiazepines Pulse oximetry is pending, but spot oxygen levels have been fine Plan Discontinue duloxetine No need for carotid Doppler or CTA angiogram Pulse oximetry pending, respiratory therapy tells me there is a software problem Aim for discharge by tomorrow Hold on lumbar puncture Follow-up as scheduled with SANTIAGO Frazier, 07/26/20 10 AM Subjective Feels better Objective Vital Signs Date Time Temp Pulse Resp B/P (MAP) Pulse Ox O2 Delivery O2 Flow Rate FiO2 06/23/21 12:19 Room Air 2.0 06/23/21 11:00 97.7 79 18 143/86 (105) 91 97.7 Intake and Output 06/23/21 07:00 Intake Total 600 ml Output Total 550 ml Balance 50 ml Intake Oral 600 ml Output Urine Total 200 ml Gastric Drainage Total 350 ml PHYSICAL EXAM Alert. Oriented to time, place and person. PERRL. EOMI. CN: no focal findings. Muscle tone: normal. Muscle strength: 5/5 DTR: 2+ Plantar reflex: Flexor Gait: not examined in bed. Sensory exam: Stocking-glove loss. No cerebellar signs elicited. Review of Relevant I have reviewed the following items whitney (where applicable) has been applied. Labs Laboratory Tests Test 06/22/21 10:15 06/22/21 11:15 SARS-CoV-2 RNA ([facility]) Positive (Negative) Urine Collection Type Unknown Urine Color Yellow Urine Clarity Clear Urine pH 7.0 (<5.0-8.0) Urine Specific [place] 1.015 (1.000-1.030) Urine Protein Negative mg/dL (NEG-TRACE) Urine Glucose (UA) Negative mg/dL (NEG) Urine Ketones (Stick) Negative mg/dL (NEG) Urine Blood Negative (NEG) Urine Nitrite Negative (NEG) Urine Bilirubin Negative (NEG) Urine Urobilinogen Dipstick 1.0 mg/dL (0.2 mg/dL) Urine Leukocyte Esterase Negative (NEG) Urine RBC 0 /HPF (0-2) Urine WBC 0 /HPF (0-4) Urine Squamous Epithelial Cells Few /LPF Urine Bacteria 0 /HPF (0-FEW) Urine Opiates Screen Neg (NEG) Urine Methadone Screen Neg (NEG) Urine Barbiturates Neg (NEG) Urine Phencyclidine Screen Neg (NEG) Urine Amphetamine/Methamphetamine Neg (NEG) Urine Benzodiazepines Screen Pos (NEG) Urine Cocaine Screen Neg (NEG) Urine Cannabinoids Screen Neg (NEG) Urine Ethyl Alcohol Neg (NEG) Medications Current Medications Diazepam (Valium) 5 mg 1X ONCE PO Last administered on 06/20/21at 19:13; Start 06/20/21 at 19:00; Stop 06/20/21 at 19:01; Status DC Calcium Carbonate/ Glycine (Tums) 500 mg PRN AFTMEALHC PRN PO INDIGESTION Last administered on 06/22/21at 21:10; Start 06/20/21 at 21:00 Acetaminophen (Tylenol) 650 mg PRN Q6HRS PRN PO MILD PAIN / TEMP > 100.3'F Last administered on 06/21/21at 20:42; Start 06/21/21 at 04:15 Zolpidem Tartrate (Ambien) 5 mg QHS PRN PO INSOMNIA, MAY REPEAT X1 Last administered on 06/22/21at 21:10; Start 06/21/21 at 21:00 Diazepam (Valium) 5 mg TID PO Last administered on 06/23/21at 10:04; Start 06/21/21 at 09:30 Metoclopramide HCl (Reglan) 10 mg QHS PO Last administered on 06/22/21at 21:10; Start 06/21/21 at 21:00 Trazodone HCl (Desyrel) 150 mg QHS PO Last administered on 06/22/21at 21:10; Start 06/21/21 at 21:00 Prednisone (Prednisone) 5 mg DAILY PO Last administered on 06/23/21at 10:04; Start 06/21/21 at 10:00 Levothyroxine Sodium (Synthroid) 75 mcg DAILY06 PO Last administered on 06/23/21at 05:57; Start 06/22/21 at 06:00 Isosorbide Mononitrate (Imdur) 60 mg DAILY PO Last administered on 06/23/21at 10:03; Start 06/21/21 at 10:00 Pantoprazole Sodium (Protonix) 40 mg DAILYAC PO Last administered on 06/23/21at 05:57; Start 06/22/21 at 07:30 Non-Formulary Medication (suboxone) 8.2 mg DAILY PO ; Start 06/21/21 at 10:00; Status UNV Duloxetine HCl (Cymbalta) 30 mg BID PO Last administered on 06/21/21at 10:00; Start 06/21/21 at 10:00; Stop 06/22/21 at 08:31; Status DC Non-Formulary Medication (SUBOXONE (Buprenorphine/ Naloxone) 8mg/ 2mg SL STRIP) 1 ea TID SL Last administered on 06/23/21at 10:33; Start 06/21/21 at 14:00 Albuterol/ Ipratropium (Duoneb) 3 ml RTQID NEB Last administered on 06/22/21at 11:18; Start 06/21/21 at 20:00; Stop 06/23/21 at 06:56; Status DC Albuterol/ Ipratropium (Combivent Respimat 20-100 Mcg) 1 puff RTQID INH Last administered on 06/23/21at 12:00; Start 06/23/21 at 08:00 Active Scripts Active Reported Ambien (Zolpidem Tartrate) 5 Mg Tablet 5 Mg PO PRN QHS PRN Valium (Diazepam) 5 Mg Tablet 5 Mg PO TID Vitals/I & O Vital Sign - Last 24 Hours 06/22/21 06/22/21 06/22/21 06/22/21 15:00 19:57 20:15 23:19 Temp 98.7 98.2 98.3 98.7 98.2 98.3 Pulse 105 96 89 Resp 18 16 16 B/P (MAP) 118/78 (91) 149/75 (99) 121/72 (88) Pulse Ox 92 93 93 O2 Delivery Nasal Cannula Nasal Cannula Room Air Nasal Cannula O2 Flow Rate 2.0 2.0 2.0 06/23/21 06/23/21 06/23/21 06/23/21 03:40 07:00 08:11 10:03 Temp 98.0 98.0 Pulse 80 80 Resp 18 B/P (MAP) 122/84 (97) 122/84 Pulse Ox 94 O2 Delivery Nasal Cannula Nasal Cannula Room Air O2 Flow Rate 2.0 2.0 2.0 06/23/21 06/23/21 11:00 12:19 Temp 97.7 97.7 Pulse 79 Resp 18 B/P (MAP) 143/86 (105) Pulse Ox 91 O2 Delivery Nasal Cannula Room Air O2 Flow Rate 2.0 2.0 Intake and Output 06/22/21 06/22/21 06/23/21 15:00 23:00 07:00 Intake Total 400 ml 200 ml Output Total 200 ml 350 ml Balance -200 ml 400 ml -150 ml Justicifation of Admission Dx: Justifications for Admission: Justification of Admission Dx: N/A ANTONIO HERR MD Jun 23, 2021 12:42
--- NOTE | 2021-06-23 12:43 | NUR ---
pt is discharging home with spouse to self-isolate as he is Covid+. picked up patient at main entrance and took pt home, he is to resume taking all home meds except he is to stop taking cymbalta. he was advised to make appt with Dr Ziegler within 2 weeks of discharge home. Gus Sun RN
--- NOTE | 2021-06-24 03:32 | DS ---
DATE OF DISCHARGE: 06/23/2021 PRIMARY DIAGNOSIS: Acute mental status change. ADDITIONAL DIAGNOSES: Sarcoidosis, chronic pain, history of peripheral neuropathy. CHIEF COMPLAINT AND HISTORY OF PRESENT ILLNESS: This 76-year-old male was brought by his to the Emergency Room because of acute confusional state with encephalopathy. He has had a month or so of ill-defined mental status leading up to this, but much worse on the day of admission. SUMMARY OF STAY: The patient was admitted. Workup was undertaken including laboratory showing a white count of 13,000. CO2 on his chem panel of 34. A BNP of 179. Toxicology screen was negative except for benzodiazepines and he takes diazepam at home. Urinalysis was unremarkable. He was COVID positive, but has had both vaccinations and booster, really was not symptomatic of this at all. During the stay, he did have a chest x-ray showing no acute changes. CT head, hand x-ray, knee x-ray and brain MRI all were unrewarding. EEG showed mild diffuse disturbance of cerebral activity consistent with variety of toxic or metabolic conditions. There was no focal paroxysmal or epileptiform activity. Upon talking to him and his at length, they feel like symptomatology really started with addition of Cymbalta by his pain doctor. Neurology followed along, felt that was as good a possibility as any. It was elected to stop this and it was felt he could be dismissed home with his with isolation for the next couple of weeks due to the ongoing COVID positivity. DISPOSITION: The patient is discharged to home. DIET: He was discharged on regular diet. ACTIVITY: As tolerated. FOLLOWUP: Office in 2 weeks. DISCHARGE MEDICATIONS: Listed on the med rec and have been addressed. POONAM/MADELINE DR: Sandeep TID: [id number]
== END 2021-06-23 13:00 | disposition home or self-care (01) | DRG 70 ==
LOC: ER 13:55 → 5 NORTH 15:30
PROVIDERS: ADMIT Family Medicine; ATTEND Family Medicine
DX: G93.40 Encephalopathy, unspecified (principal); U07.1 COVID-19; D86.9 Sarcoidosis, unspecified; F02.80 Dementia in other diseases classified elsewhere, unspecified severity, without behavioral disturbance, psychotic disturbance, mood disturbance, and anxiety; F41.9 Anxiety disorder, unspecified; G30.9 Alzheimer's disease, unspecified; G47.10 Hypersomnia, unspecified; G60.9 Hereditary and idiopathic neuropathy, unspecified; G89.29 Other chronic pain; J44.9 Chronic obstructive pulmonary disease, unspecified; Z82.3 Family history of stroke; Z87.891 Personal history of nicotine dependence; Z96.649 Presence of unspecified artificial hip joint; Z96.659 Presence of unspecified artificial knee joint; M19.90 Unspecified osteoarthritis, unspecified site
CPT/HCPCS: 36415; 70450; 70551; 71045; 73130; 73562; 80053; 80307; 81001; 82550; 83605; 83735; 83880; 85025; 93005; 94640; 94760; 95816; J7512; U0003; U0005; 92610-GN; 99285-25; G0378